=== PATIENT | male | born 1985 | race Caucasian/White ===

== ENCOUNTER 2016-12-11 18:32 | Emergency (ER) | payer BC, SELFPAY | END 2016-12-11 19:13 | disposition home or self-care (01) | LOC: SCSER 18:32 | DX: K03.81 Cracked tooth (principal); K02.9 Dental caries, unspecified; I10 Essential (primary) hypertension; F41.9 Anxiety disorder, unspecified; F17.210 Nicotine dependence, cigarettes, uncomplicated | CPT/HCPCS: 99282 ==

== ENCOUNTER 2018-01-02 23:18 | Emergency (ER) | payer BC, SELFPAY ==
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
[2018-01-03] MEDS ORDERED: Ketorolac Tromethamine 60 MG/2 ML VIAL ONE (00:27)
--- NOTE | 2018-01-04 08:43 | EKG ---
Test Reason : CP REPEAT Blood Pressure : / mmHG Vent. Rate : 093 BPM Atrial Rate : 093 BPM P-R Int : 148 ms QRS Dur : 090 ms QT Int : 346 ms P-R-T Axes : 042 055 024 degrees QTc Int : 430 ms Normal sinus rhythm Normal ECG Confirmed by VISHAL SNOW ([id number]) on 01/04/2018 8:43:16 AM Referred By: Confirmed By:VISHAL SNOW
--- NOTE | 2018-01-04 08:43 | EKG ---
Test Reason : CP SOB Blood Pressure : / mmHG Vent. Rate : 091 BPM Atrial Rate : 091 BPM P-R Int : 152 ms QRS Dur : 092 ms QT Int : 342 ms P-R-T Axes : 036 045 025 degrees QTc Int : 420 ms Normal sinus rhythm Normal ECG Confirmed by VISHAL SNOW ([id number]) on 01/04/2018 8:43:07 AM Referred By: Confirmed By:VISHAL SNOW
== END 2018-01-03 00:50 | disposition home or self-care (01) ==
LOC: ERS 23:18
DX: R07.89 Other chest pain (principal); F43.0 Acute stress reaction; F41.9 Anxiety disorder, unspecified; F32.9 Major depressive disorder, single episode, unspecified
CPT/HCPCS: 71046; 93005; 96372; J1885

== ENCOUNTER 2018-07-17 01:49 | Emergency (ER) | payer SELFPAY ==
[2018-07-17 02:15] LABS: #Basophils 0.1 thou/uL (0.0-0.2); #Eosinphils 0.1 thou/uL (0.0-0.7); #Lymphocytes 1.7 thou/uL (1.20-3.40); #Monocytes 1.2 thou/uL (0.11-0.59); #Neutrophils 12.3 thou/uL (1.40-6.50); %Basophils 0.4 % (0.0-1.0); %Eosinophils 0.7 % (0.0-10.0); %Lymphocytes 11.3 % (21.0-51.0); %Neutrophils 79.6 % (42.0-75.0); Hemoglobin 13.1 g/dL (14.0-18.0); Mean Corpuscular HGB CONC 35.6 g/dL (32.0-36.0); Mean Corpuscular Hemoglobin 31.3 pg (27.0-31.0); Mean Corpuscular Volume 88.2 fL (78.0-98.0); Mean Platelet Volume 7.1 fL (7.4-10.4); Platelet Count 236 thou/uL (130-400); RBC Distribution Width 11.5 % (11.5-14.5); Red Blood Cell (RBC) Count 4.18 mill/uL (4.70-6.10); White Blood Cell (WBC) Count 15.4 thou/uL (4.8-10.8)
[2018-07-17 02:38] LABS: ALT (SGPT) 28 U/L (8-55); AST (SGOT) 22 U/L (5-34); Albumin 3.9 g/dL (3.5-5.0); Alkaline Phosphatase 65 U/L (40-150); Anion Gap 11 mmol/L (10-20); BUN (Urea Nitrogen) 13 mg/dL (8.9-20.6); Bilirubin, Total 0.2 mg/dL (0.2-1.2); Calc. Creatinine Clearance 0 mL/min (70-130); Carbon Dioxide 22 mmol/L (22-29); Chloride 108 mmol/L (98-107); Estimated GFR-MDRD Greater than 90; Glucose 106 mg/dL (70-105); Potassium 3.8 mmol/L (3.5-5.1); Protein, Total 6.9 g/dL (6.0-8.3); Sodium 137 mmol/L (136-145)
[2018-07-17] MEDS ORDERED: Naloxone HCl 0.4 mg/ml Vial ONE (04:09)
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
[2018-07-17] MEDS ORDERED: ISOVUE-370 76%-LOCM 1 ML ONE (16:17)
== END 2018-07-17 04:38 ==
LOC: ERS 01:49
DX: S50.312A Abrasion of left elbow, initial encounter (principal); S50.311A Abrasion of right elbow, initial encounter; S50.812A Abrasion of left forearm, initial encounter; M54.5 Low back pain; R91.1 Solitary pulmonary nodule; F19.129 Other psychoactive substance abuse with intoxication, unspecified; Z79.899 Other long term (current) drug therapy; V49.9XXA Car occupant (driver) (passenger) injured in unspecified traffic accident, initial encounter
CPT/HCPCS: 70450; 71045; 71260; 72125; 72170; 74177; 80053; 80307; 85025; 96361; 96374; G0390; J2310; Q9966